=== PATIENT | female | born 1945 | race Two or more races ===

== ENCOUNTER 2021-11-30 21:49 | Emergency (ER) | payer MEDICARE, OTHER ==
[~2021-11-30] VITALS: Ht 154.9 cm; Wt 55.0 kg
[~2021-11-30 21:49] MED LIST: ADVAIR; ALBU2TAB4 PO; BENA10TA15; CARI-277 PO; CLARITAN; FLUTICASONE; HYDR-2457 PO; LORA-205; LYRICA PO; METF-370; PREMARIN; PROAIR; SIMV80TA73; SINGULAIR; TRAMADOL; VERA1CAP6
[2021-11-30 22:18] VITALS: BP 182/88
[2021-11-30] MEDS ORDERED: IBUPROFEN 800 MG TAB PO ONE (23:45)
== END 2021-12-01 00:35 | disposition left against medical advice (07) ==
LOC: EDBD 21:49 → ER 21:49
DX: S00.83XA Contusion of other part of head, initial encounter (principal); I10 Essential (primary) hypertension; E11.9 Type 2 diabetes mellitus without complications; E78.5 Hyperlipidemia, unspecified; Z90.710 Acquired absence of both cervix and uterus; Z79.899 Other long term (current) drug therapy; W01.198A Fall on same level from slipping, tripping and stumbling with subsequent striking against other object, initial encounter; Y93.89 Activity, other specified; Y92.89 Other specified places as the place of occurrence of the external cause; Y99.8 Other external cause status
CPT/HCPCS: 70450; 72125